=== PATIENT | female | born 1955 | race Caucasian/White ===

== ENCOUNTER 2020-06-11 13:20 | Outpatient (CLI) | payer MEDICARE, SELFPAY ==
--- NOTE | 2020-06-11 13:31 | MM_ITS ---
WS: [id number] BILATERAL SCREENING DIGITAL MAMMOGRAM WITH CAD HISTORY: SCREENING COMPARISON: 05/24/2019 and 05/01/2018 and 04/27/2017 Bilateral CC and MLO views submitted. Computer aided detection analyzed. Breast composition: There are scattered areas of fibroglandular density. No suspicious masses, microc alcifications or architectural distortion. No change in the parenchymal pattern. MM/[place] [id number] IMPRESSION: BI-RADS: 2-Benign FOLLOW UP: 1 Year Follow-up
--- NOTE | 2020-06-11 14:16 | XR_ITS ---
WS: [id number] Exam: XR DEXA axial skeleton* [id number] Date/Time of Exam: 06/11/2020 2:17 PM Reason For Exam: POST MENOPAUSAL DEXA BONE DENSITOMETRY EPV SOLAR The L1-L4 bone mineral density measures 0.983 g/cm2. This corresponds to a T score of -1.6 and Z scor e of -0.9. Left femoral neck bone mineral density measures 0.853 g/cm2. This corresponds to T score of -1.2 and Z score of -0.7. Right femoral neck bone mineral density measures 0.839 g/cm2. This corresponds to a T score of -1.3 a nd Z score of -0.8. Mean femoral neck bone mineral density measures 0.846 g/cm2. This corresponds to a T score of -1.3 an d Z score of -0.7 XR/XR DEXA axial skeleton* [id number] IMPRESSION: Bone mineral density lies in the osteopenic range. Refer to detailed summary.
== END 2020-06-11 13:21 | disposition home or self-care (01) ==
LOC: RADSHAW 13:24
PROVIDERS: PCP Family Medicine; Visit Provider Family Medicine
DX: Z12.31 Encounter for screening mammogram for malignant neoplasm of breast (principal); Z78.0 Asymptomatic menopausal state
CPT/HCPCS: 77067; 77080

== ENCOUNTER 2021-02-09 11:19 | Outpatient (CLI) | payer MEDICARE, SELFPAY ==
--- NOTE | 2021-02-09 12:00 | USCV_ITS ---
Ellen Loomis Age: 65 Gender: F : 1955 Exam Date: 02/09/2021 11:14 Ordering Phys: Emeka Olvera DPM Technologist: Alexa Rosen [place] [facility] [place]: DECREASED PULSES RIGHT LEFT Brachial 166.00 mmHg Brachial 132.00 mmHg Pressure (mmHg) Waveform Pressure (mmHg) Waveform 135.00 Above Knee 132.00 160.00 Below Knee 157.00 169.00 MEDICAL SCRIBE 150.00 158.00 DPA 164.00 1.02 Ankle/Brachial Index 0.99 141.00 Pre-Exercise Toe Pressure 155.00 Pre-Exercise Toe/Brachial Index 0.93 0.85 FINDINGS Normal resting ABIs bilaterally Normal resting TBIs bilaterally PVR waveforms showing minimal blunting of the dicrotic notch CONCLUSIONS No evidence of any significant arterial obstruction, based on the above findings. Dr Leticia Thomas MD [facility] (Electronically Signed) Final Date: 09 February 2021 23:56 S
== END 2021-02-09 11:20 | disposition home or self-care (01) ==
LOC: US 11:27
PROVIDERS: PCP Family Medicine; Visit Provider Podiatrist Foot & Ankle Surgery
DX: I73.9 Peripheral vascular disease, unspecified (principal)
CPT/HCPCS: 93923

== ENCOUNTER 2021-09-24 11:00 | Outpatient (CLI) | payer MEDICARE, SELFPAY ==
--- NOTE | 2021-09-24 11:13 | MM_ITS ---
WS: [id number] BILATERAL DIGITAL SCREENING MAMMOGRAPHY WITH CAD CLINICAL INFORMATION: SCREENING HISTORY: Screening mammogram. No current complaints. COMPARISON: June 11, 2020 TECHNIQUE: Bilateral CC and MLO views. FINDINGS: Scattered fibroglandular densities bilaterally. Biopsy marker RIGHT breast. A few incidental punctate calcifications. No suspicious focal mass, asymmetry, calcifications, or architectural distortion. No evidence of malignancy. MM/[place] [id number] IMPRESSION: BI-RADS: 2-Benign FOLLOW UP: 1 Year Follow-up Recommend return to annual screening mammography.
== END 2021-09-24 11:01 | disposition home or self-care (01) ==
PROVIDERS: PCP Family Medicine; Visit Provider Family Medicine
DX: Z12.31 Encounter for screening mammogram for malignant neoplasm of breast (principal)
CPT/HCPCS: 77067

== ENCOUNTER → 2022-04-26 13:25 | Outpatient (BNVA) | payer MEDICARE, SELFPAY | PROVIDERS: PCP Family Medicine; Visit Provider Podiatrist Foot & Ankle Surgery | DX: L60.3 Nail dystrophy (principal); L85.1 Acquired keratosis [keratoderma] palmaris et plantaris | CPT/HCPCS: 11721 ==

== ENCOUNTER → 2022-06-29 10:28 | Outpatient (BNVA) | payer MEDICARE, SELFPAY | PROVIDERS: PCP Family Medicine; Visit Provider Podiatrist Foot & Ankle Surgery | DX: L85.1 Acquired keratosis [keratoderma] palmaris et plantaris (principal); L60.3 Nail dystrophy | CPT/HCPCS: 17110 ==

== ENCOUNTER 2022-07-12 14:40 | Outpatient (CLI) | payer MEDICARE, SELFPAY ==
--- NOTE | 2022-07-12 14:51 | XR_ITS ---
WS: [id number] SCREENING DEXA SCAN [employer] CLINICAL INFORMATION: POSTMENOPAUSAL COMPARISON: June 11, 2020 FINDINGS: The L1-L4 bone mineral density measures 0.956 g/cm2. This corresponds to a T score score of -1.9 and Z score of -0.3. Left femoral neck bone mineral density measures 0.809 g/cm2. This corresponds to a T score of -1.6 an d Z score of -0.3. Right femoral neck bone mineral density measures 0.789 g/cm2. This corresponds to a T score -1.7of an d Z score of -0.5. Mean femoral neck bone mineral density measures 0.799 g/cm2. This corresponds to a T score of -1.7 an d Z score of -0.4. XR/XR DEXA axial skeleton* [id number] IMPRESSION: Osteopenia lumbar spine. Osteopenia femoral necks. Patient's FRAX calculated 10 year probability for major osteoporotic fracture i s 21.1 % and osteoporotic hip fracture is 4.4%. Bone mineral density in the lumbar spine has decreased -2.7% since 2019. Bone mineral density in the femoral necks has decreased -5.6% since 2020.
== END 2022-07-12 14:41 | disposition home or self-care (01) ==
LOC: RAD 14:40
PROVIDERS: PCP Family Medicine; Visit Provider Family Medicine
DX: Z78.0 Asymptomatic menopausal state (principal); M85.88 Other specified disorders of bone density and structure, other site
CPT/HCPCS: 77080

== ENCOUNTER → 2022-08-22 11:07 | Outpatient (BNVA) | payer MEDICARE, SELFPAY | PROVIDERS: PCP Family Medicine; Visit Provider Podiatrist Foot & Ankle Surgery | DX: L85.1 Acquired keratosis [keratoderma] palmaris et plantaris (principal); L84 Corns and callosities; L60.3 Nail dystrophy | CPT/HCPCS: 17110 ==

== ENCOUNTER → 2022-10-10 10:19 | Outpatient (BNVA) | payer MEDICARE, SELFPAY | PROVIDERS: PCP Family Medicine; Visit Provider Podiatrist Foot & Ankle Surgery | DX: L85.1 Acquired keratosis [keratoderma] palmaris et plantaris (principal); L84 Corns and callosities; L60.3 Nail dystrophy | CPT/HCPCS: 17110 ==

== ENCOUNTER 2022-10-21 11:02 | Outpatient (CLI) | payer MEDICARE, SELFPAY ==
--- NOTE | 2022-10-21 11:18 | MM_ITS ---
WS: [id number] Bilateral screening 3D tomosynthesis digital mammogram, 10/21/2022 Clinical Data: SCREENING Comparison: 09/24/2021, 06/11/2020, 05/24/2019, 05/01/2018, 04/27/2017, 05/22/2008, 04/27/2007. Findings: The breast parenchymal pattern shows fibroglandular tissue. No spiculated masses or clustered calcifi cations are seen. There are no secondary signs of carcinoma. There are mole markers on the left breas t. MM/[place] [id number] Impression: 1. Negative bilateral mammogram unchanged. 2. Recommend annual screening mammograms. BIRADS: 1-Negative FOLLOW UP: 1 Year Follow-up The CAD linen checker was used.
== END 2022-10-21 11:03 | disposition home or self-care (01) ==
LOC: RAD 11:13
PROVIDERS: PCP Family Medicine; Visit Provider Family Medicine
DX: Z12.31 Encounter for screening mammogram for malignant neoplasm of breast (principal)
CPT/HCPCS: 77063; 77067

== ENCOUNTER → 2022-11-03 09:31 | Outpatient (BNVA) | payer MEDICARE, SELFPAY | PROVIDERS: PCP Family Medicine; Visit Provider Podiatrist Foot & Ankle Surgery | DX: L60.3 Nail dystrophy (principal); L60.0 Ingrowing nail | CPT/HCPCS: 11750; A6219; A6446 ==

== ENCOUNTER → 2022-11-21 11:15 | Outpatient (BNVA) | payer MEDICARE, SELFPAY | PROVIDERS: PCP Family Medicine; Visit Provider Podiatrist Foot & Ankle Surgery | DX: L60.0 Ingrowing nail (principal); L60.3 Nail dystrophy; Z98.890 Other specified postprocedural states | CPT/HCPCS: 99213 ==

== ENCOUNTER 2023-11-07 10:01 | Outpatient (CLI) | payer MEDICARE, SELFPAY ==
--- NOTE | 2023-11-07 10:08 | MM_ITS ---
WS: [email or web address] VIEWS: MLO and CC views both breasts. 3D digital tomosynthesis is also included in this exam. Comparison made with prior exam of 04/27/2007, 05/22/2008, 04/27/2017, 05/01/2018, 05/24/2019, 06/11/2020 , 09/24/2021.. Findings: There was no sign of mass, architectural distortion or suspicious calcification in either breast. The re are scattered areas of fibroglandular density Impression: MM/[place] [id number] BI-RADS: 1-Negative FOLLOW-UP: 1 Year Follow-up This mammogram was also analyzed by the Computer Aided Detection System [employer].
== END 2023-11-07 10:02 | disposition home or self-care (01) ==
LOC: RAD 10:02
PROVIDERS: PCP Family Medicine; Visit Provider Family Medicine
DX: Z12.31 Encounter for screening mammogram for malignant neoplasm of breast (principal)
CPT/HCPCS: 77063; 77067

== ENCOUNTER 2024-07-15 15:04 | Outpatient (CLI) | payer MEDICARE, SELFPAY ==
--- NOTE | 2024-07-15 15:06 | XR_ITS ---
WS: [email or web address] SCREENING DEXA SCAN [employer] CLINICAL INFORMATION: POSTMENOPAUSAL COMPARISON: 2021 FINDINGS: The L1-L4 bone mineral density measures 0.946 g/cm2. This corresponds to a T score score of -2.0 and Z score of -0.5. Left femoral neck bone mineral density measures 0.764 g/cm2. This corresponds to a T score of -1.9 an d Z score of -0.7. Right femoral neck bone mineral density measures 0.755 g/cm2. This corresponds to a T score -2.0of an d Z score of -0.8. Mean femoral neck bone mineral density measures 0.759 g/cm2. This corresponds to a T score of -2.0 an d Z score of -0.7. XR/XR DEXA axial skeleton* [id number] IMPRESSION: Osteopenia lumbar spine. Osteopenia femoral necks. Patient's FRAX calculated 10 year probability for major osteoporotic fracture i s 26.4% and osteoporotic hip fracture is 7.9%. Bone mineral density lumbar spine decreased -1.0% Bone mineral density femoral necks decreased -5.0%
== END 2024-07-15 15:05 | disposition home or self-care (01) ==
LOC: RAD 15:05
PROVIDERS: PCP Family Medicine; Visit Provider Family Medicine
DX: Z13.820 Encounter for screening for osteoporosis (principal); Z78.0 Asymptomatic menopausal state; M85.80 Other specified disorders of bone density and structure, unspecified site
CPT/HCPCS: 77080

== ENCOUNTER 2024-11-08 09:45 | Outpatient (CLI) | payer MEDICARE, SELFPAY ==
--- NOTE | 2024-11-08 09:52 | MM_ITS ---
WS: [id number] BILATERAL SCREENING DIGITAL TOMOSYNTHESIS MAMMOGRAM WITH CAD HISTORY: SCREENING COMPARISON: None available. Bilateral CC and MLO views with tomosynthesis and synthetic mammography submitted. Computer aided detection analyzed. Breast composition: There are scattered areas of fibroglandular density. No suspicious masses, microcalcifications or architectural distortion. Benign calcifications in each breast. MM/MM scr BI tomosynthesis [id number] IMPRESSION: BI-RADS: 2 - Benign. FOLLOW UP: 1 Year Follow-up
== END 2024-11-08 09:46 | disposition home or self-care (01) ==
LOC: RAD 09:48
PROVIDERS: PCP Family Medicine; Visit Provider Family Medicine
DX: Z12.31 Encounter for screening mammogram for malignant neoplasm of breast (principal); R92.323 Mammographic fibroglandular density, bilateral breasts; R92.1 Mammographic calcification found on diagnostic imaging of breast
CPT/HCPCS: 77063; 77067

== ENCOUNTER → 2025-02-18 10:41 | Outpatient (BNVA) | payer MEDICARE, SELFPAY | PROVIDERS: PCP Family Medicine; Visit Provider Podiatrist Foot & Ankle Surgery | DX: I73.9 Peripheral vascular disease, unspecified (principal); L60.3 Nail dystrophy; M79.671 Pain in right foot; M79.672 Pain in left foot | CPT/HCPCS: 11721 ==

== ENCOUNTER → 2025-05-26 09:04 | Outpatient (BNVA) | payer MEDICARE, SELFPAY | PROVIDERS: PCP Family Medicine; Visit Provider Podiatrist Foot & Ankle Surgery | DX: I73.9 Peripheral vascular disease, unspecified (principal); L60.3 Nail dystrophy; L60.8 Other nail disorders | CPT/HCPCS: 11721 ==